=== PATIENT | female | born 1960 | race Caucasian/White ===

== ENCOUNTER → 2019-04-10 14:54 | Outpatient (CLI) | payer OTHER, SELFPAY ==
[2019-04-10 17:29] LABS: Hematocrit 42.2 % (37-47); Hemoglobin 14.1 g/dL (12.0-15.0); Mean Corp Hgb Conc 33.4 g/dL (32-36); Mean Corpuscular Volume 101.7 fL (81-99); Mean Platelet Vol. 10.5 fl (6.2-12.0); Platelet Count 218 K/mm3 (150-450); RBC Distribution Width CV 13.5 % (11.6-14.6); RBC Distribution Width SD 51.3 fl (35.1-43.9); Red Blood Count 4.15 M/mm3 (4.2-5.4)
[2019-04-10 17:43] LABS: ALB/GLOB Ratio 1.2 RATIO (0.9-2.4); AST(SGOT) 22 U/L (15-37); Alanine Aminotransfer ALT/SGPT 26 U/L (13-56); Albumin, Serum 3.8 g/dL (3.2-5.0); Alkaline Phosphatase 69 U/L (45-117); BUN 12 mg/dL (7-18); BUN/Creat Ratio 15.7 RATIO (10-20); Calcium,Total 8.9 mg/dL (8.5-10.1); Chloride 105 mmol/L (98-107); Creatinine, Serum 0.77 mg/dL (0.55-1.02); EST Glomerular Filtration Rate 83 mL/min (>60); Est Glom Filt Rate - Afr Amer 100 mL/min (>60); Globulin 3.2 g/dL (2.2-4.2); Glucose 91 mg/dL (74-106); Potassium 4.1 mmol/L (3.5-5.1); Sodium Level 139 mmol/L (136-145)
[2019-04-10 17:44] LABS: Anion Gap 7 (5-15)
[2019-04-10 17:48] LABS: Erythrocyte Sedimentation Rate 4 mm/hr (0-30)
== END ==
PROVIDERS: Family Provider Family Medicine; PCP Family Medicine; Referring Provider Internal Medicine Gastroenterology; Visit Provider Internal Medicine Gastroenterology
DX: K52.9 Noninfective gastroenteritis and colitis, unspecified (principal)
CPT/HCPCS: 36415; 80053; 85027; 85652

== ENCOUNTER → 2019-06-14 11:13 | Outpatient (CLI) | payer OTHER, SELFPAY ==
--- NOTE | 2019-06-14 | IMM_PTH ---
PATIENT: ITALO MENDIETA LOC: [facility] U#:[id number] AGE/SX: 65/F ROOM: RE06/14/[address]: Dr. Zbigniew Benoit MD : 1960 BED: DIS: SPEC #: [id number] RECD: 06/17/19 12:54 STATUS: CODY REQ #: [id number] DEVANTE: 06/14/19 00:[address]: Zbigniew Benoit DEPT: IMMUNOHISTOCHEMISTRY RECD BY: Meghan Medina ENTERED: 06/17/19 12:54 SP TYPE: IMMUNO OTHR DR: Dr. Pavel Miller DO Tissues: Right breast, NOS Procedures: CK8 (initial) E-CAD (add) PHYSICIAN & INSTITUTION [place] [address] SPECIMEN INFORMATION: Tissue Source: Right breast Clinical Info: Microcalcifications Specimen Number: [id number] #2 CPT code: 78855, 20117 METHODOLOGY: Deparaffinized sections of prefer/formalin-fixed tissue or PAP/DQ stained slides are incubated with monoclonal/polyclonal antibodies/oligonucleotide probes. Localization is made via biotin free immunoperoxidase method. Appropriate controls are performed and reacted as expected. Results on target cell population are indicated in the following table: RESULTS: ANTIBODY / CLONE RESULT Block 2 CK8 ([id number]) positive E-Cad (ECH-6) negative * *?Positive in the area of intraductal hyperplasia. These tests were developed and their performance characteristics determined by [facility]. They may not have been cleared or approved by the U.S. Food and Drug Administration. The FDA has determined that such clearance or approval is not necessary. The above immunohistochemical/dualISH markers are ordered and reviewed by the Pathologist. INTERPRETATION: Right breast, stereotactic needle core biopsy: Focal atypical lobular hyperplasia. Intraductal hyperplasia with atypia. SJ:edy 06/18/19
--- NOTE | 2019-06-14 | BRBX_PTH ---
PATIENT: ITALO MENDIETA LOC: [facility] U#:[id number] AGE/SX: 65/F ROOM: RE06/14/[address]: Dr. Zbigniew Benoit MD : 1960 BED: DIS: SPEC #: [id number] RECD: 06/14/19 13:35 STATUS: CODY REDanny #: [id number] DEVANTE: 06/14/19 00:[address]: Zbigniew Benoit DEPT: SURGICAL PATHOLOGY RECD BY: Renato Taylor ENTERED: 06/14/19 13:35 SP TYPE: BREAST BX OTHR DR: Dr. Pavel Miller DO Tissues: Right breast, NOS Procedures: Surgery Specimen Level IV HEADER OPERATION: Right breast stereotactic needle core biopsy PRE-OP DIAGNOSIS: Microcalcifications TISSUE SUBMITTED: Right breast ISCHEMIC TIME: 2 minutes FIXATION TIME: 55.5 hours MICROSCOPIC DIAGNOSIS Right breast, stereotactic needle core biopsy: Fibrocystic changes and intraductal hyperplasia with atypia. Focal atypical lobular hyperplasia. Frequent microcalcifications. See comment. VICTOR MANUEL:edy 06/17/19 COMMENT The atypia approaches close to low-grade ductal carcinoma in situ. Immunohistochemistry ([id number]) supports the above diagnosis. Please make reference to previous specimen ([id number]) right breast mass, lumpectomy with needle localization with diagnosis of moderate intraductal hyperplasia without atypia. MICROSCOPIC DESCRIPTION Slides are reviewed. GROSS DESCRIPTION Received is one container labeled with the patient's name and not further designated. The specimen consists of multiple elongated fragments of norman-yellow fibroadipose tissue that in aggregate measure 5 x 3 x 0.3 cm. The entire specimen is submitted in two cassettes. / VICTOR AMNUEL:edy 06/14/19 TC:5 CPT: 04613
--- NOTE | 2019-06-14 07:59 | HP.PCM_ITS ---
History and Physical Date of Admission: 06/14/19 HISTORY AND PHYSICAL - BREAST COMPLAINT ? Taylor Delgado 1960 ? ? REFERRING PHYSICIAN: ??Bryce See, DO ? CHIEF COMPLAINT:???Abnormal right breast imaging ? HPI: The patient is a 59 year old female with a complaint of?an abnormal mammogram. ?The patient had a mammogram on April 10, 2019?which demonstrated: ? IMPRESSION: SUSPICIOUS FINDING - BIOPSY SHOULD BE CONSIDERED The grouped pleomorphic calcifications in the right breast are suspicious of malignancy. ?A stereotactic biopsy is recommended. ? IMPRESSION: BENIGN FINDING There is no sonographic evidence of malignancy. The 1.5 cm cyst in the left breast is benign. ? Prior mammographic finding is no longer seen in the left breast. ?There are stable surgical clips in the right breast. There are a grouped pleomorphic calcifications in the right breast at 11 o'clock middle depth. No other significant masses, calcifications, or other findings are seen in either breast. ? ? The patient had a bilateral screening mammogram on 05/02/12 followed by diagnostic right mammogram on May 23, 2012 which demonstrated clusters of microcalcifications in the upper outer portion of the right breast. ?Per radiologist's report, there had been some calcifications on prior films but these appear now to be increasing in number. ?A BIRADS category 4 was given on right breast imaging with recommendation of biopsy. ?The patient denies a history of breast masses. ?She does ?perform a self breast exam routinely. ?She notes no skin changes. ?She denies nipple discharge. ?She notes no axillary masses. ?She notes no family history of breast problems. ?She notes no significant breast trauma or breast difficulties in the past. ? I performed a right side stereotactic biopsy for her abnormal mammogram on June 20. ?The pathology returned as: FINAL DIAGNOSIS 1. Right breast, 12:00, stereotactic core needle biopsy (A) - Focal atypical ductal hyperplasia and flat epithelial atypia in a background of columnar cell change with microcalcifications. 2. Right breast, 3:00, stereotactic core needle biopsy (B) - Unremarkable breast parenchyma. 3. Right breast, 6:00, stereotactic core needle biopsy (C) - Flat epithelial atypia arising in a background of columnar cell change with associated microcalcifications. 4. Right breast, 9:00, stereotactic core needle biopsy (D) - Flat epithelial atypia arising in a background of columnar cell change with associated microcalcifications. ? I recommended needle localization excision. ?I discussed these finding with Dr. Greta Berg who agreed. ? I performed a right needle localization excisional biopsy on November 12. ?? ? Pathology returned as: ? Right breast mass, lumpectomy with needle localization: ?Moderate intraductal hyperplasia without atypia. ?Fibrocystic changes. ?Frequent calcifications. ?Changes consistent with previous biopsy site. ?Negative for malignancy. ? She?does??perform a self breast exam routinely. ?She notes no skin changes. ?She denies nipple discharge. ?She notes no axillary masses. ?She notes no family history of breast problems. ?She notes no significant breast trauma or breast difficulties in the past. ? The patient is being seen by me today at the request of ?for my opinion and advice regarding abnormal right breast imaging.? ? PAST MEDICAL HISTORY PAST MEDICAL HISTORY Diagnosis Date ? Anxiety state, unspecified ? ? Diaphragmatic hernia without mention of obstruction or gangrene ? ? Hiatal hernia ? Irritable bowel syndrome ? ? Irritable bowel ? Leiomyoma of uterus, unspecified ? ? resolved ? PMH - PAST MEDICAL HISTORY OF ? ? piraformis syndrome ? Ulcerative colitis, unspecified ? ? Ulcerative colitis ? Unspecified hypothyroidism ? ? Hypothyroidism ? ? PAST SURGICAL HISTORY PAST SURGICAL HISTORY Procedure Laterality Date ? APPENDECTOMY ? ? ? BX BREAST PERC VACUUM/ROTN ? 06/20/12 ? D&C, DIAG AND/OR THERAPEUTIC ? ? ? Dilation & curettage ? MASTECTOMY, PARTIAL Right 11/12/2012 ? Right upper outer quadrant ? PAST SURGICAL HISTORY OF ? 04/2009 ? aspirated left breast cyst, core bx of right breast ? PAST SURGICAL HISTORY OF ? ?-2008 ? revision of Hysterectomy scar ? REMOVAL OF TONSILS,<12 Y/O ? ? ? Tonsillectomy ? TOTAL ABDOM HYSTERECTOMY ? 06/26/2008 ? Hysterectomy, NEELA-ovaries remain ? ? CURRENT MEDICATIONS Current Outpatient Medications Medication Sig Dispense Refill ? amLODIPine (NORVASC) 5 mg tablet Take 5 mg by mouth. ? ? ? estradiol (SARA) 0.075 mg/24 hr Apply 1 Patch as directed every Monday and Monday. 24 Patch 2 ? loratadine (CLARITIN) 10 mg tablet Take 10 mg by mouth once daily. ? ? ? citalopram (CELEXA) 40 mg tablet ? ? 0 ? DAILY MULTIVITAMIN TAB ? ? 0 ? No current facility-administered medications for this visit.? ? ALLERGIES:?Bee Stings [Other] ? PERSONAL HISTORY:? SOCIAL HISTORY Social History ? Tobacco Use ? Smoking status: Former Smoker ? ? Years: 5.00 ? ? Last attempt to quit: 05/22/1989 ? ? Years since quittin.0 ? Smokeless tobacco: Never Used ? Tobacco comment: 2 cig/day Substance Use Topics ? Alcohol use: Yes ? ? Alcohol/week: 5.0 standard drinks ? ? Types: 2 Glasses of Wine (5oz) per week ? ? Comment: occasionally ? Drug use: No ? FAMILY HISTORY:? FAMILY HISTORY FAMILY HISTORY Problem Relation Age of Onset ? Cancer Mother ?BRAIN ? Heart Father ? ? Cancer Father ?Prostate ? Cancer Maternal Aunt ?LEUKEMIA ? Breast Cancer Maternal Aunt ?Started at late 30's ? Cerebral Embolism Child ? ? REVIEW OF SYMPTOMS: ??The review of systems data was entered by the nurse and reviewed by me ? Nursing Notes: Karon Chairez LPN ?06/06/2019 ?4:33 PM ?Signed REVIEW OF SYSTEMS: ?General:???The patient denies fatigue, denies weight loss, denies weight gain, denies feeling hot, and denies feelings of cold. ?Eyes: ?The patient denies glaucoma, denies eye injury/surgery, wears glasses or contacts. ?Ear/Nose/Throat: ?The patient notesallergies, denies hayfever, denies ear infections, and denies bloody noses. ?Cardiovascular: ?The patient denies chest pain, denies heart disease, denies high blood pressure,denies cardiac stent, denies prior heart attack, denies irregular heart beat, denies high cholesterol, ?denies poor circulation, denies heart failure, other cardiac issues, denies claudication, denies cold feet, denies peripheral arterial stent. ?Respiratory: ?The patient denies tuberculosis, denies pneumonia, denies frequent cough, denies pulmonary embolism, denies shortness of breath, and denies coughing up blood. ?Gastrointestinal: ?The patient denies difficulty swallowing, denies acid reflux, denies ulcers, denies vomiting, denies jaundice/hepatitis, denies gallbladder problems, denies black or tarry stools, denies hemorrhoids, denies bleeding from rectum, denies diverticulitis, denies constipation, denies diarrhea, denies loss of stool control, and denies hernias. ?Kidney/Bladder: ?The patient denies kidney stones, denies urine infections, and denies bloody urine. ?Skin: ?The patient denies a history of skin cancer, denies bleeding/changing moles, and denies a history of skin rash. ?Neurologic: ?The patient denies a history of epilepsy/convulsions, denies headaches, denies head/spinal injuries, and denies stroke/TIA. ?Psychiatric: ?The patient denies psychiatric medications, denies depression, and denies voices, denies substance abuse. ?Endocrine: ?The patient denies thyroid disorders, denies diabetes, and denies hormonal problems. ?Hematologic: ?The patient denies a history of bruising, denies bleeding, and denies anemia, denies blood clots. ?Infections: ?The patient denies a history of measles and mumps, denies rheumatic fever, and denies sexually transmitted diseases. ?Musculoskeletal: ?The patient denies back pain/injury, denies back problems, denies sciatica, denies knee/foot trouble, denies arthritis, or denies gout. ? ? When was patient's last Mammogram screening? 02/2019 ? ?Last Colonoscopy: ?2008 ? Karon Chairez LPN ? PHYSICAL EXAMINATION: ? General: ?The patient is 59 year old female, well nourished, well hydrated in no acute distress. ?The patient is oriented to time, place, and person. ? VITALS:?Blood pressure 130/80, pulse 106, temperature 36.3 ?C (97.4 ?F), temperature source Temporal, height 167.6 cm (5' 6), weight 74.4 kg (164 lb), last menstrual period 06/06/2008, SpO2 99 %.?Body mass index is 26.47 kg/m?.? ? HEENT: ?Normal cephalic, ataumatic, pupils are equally round, sclera are anicteric, mucous membranes are moist, oropharynx is clear. ?Neck has no masses, asymmetry or lymphadenopathy. ?Thyroid is unremarkable. ? Respiratory: ?Clear to auscultation and percussion. ?Normal respiratory excursion and pattern. ? Cardiac: ?Examination is regular rate and rhythm. ? Extremities: ?no clubbing, cyanosis or edema. ?No adenopathy. ? Breast: ?Visual inspection reveals no retractions, nipple inversion, or skin changes. ?She has a well-healed right upper quadrant breast incision consistent with her previous surgical procedure.??Palpation of the right breast reveals no dominant or suspicious masses and?standard postoperative surgical changes relative to her previous excisional biopsy site. ?Palpation of the left breast reveals no dominant or suspicious masses, but multiple benign-feeling nodules. ?Axillary exam demonstrates no suspicious masses in either the left or right axilla. ?There is no nipple discharge expressed from either the left or right breast. ? LABORATORY VALUES: As Noted ? RADIOLOGIC STUDIES: ?As Noted ? Assessment ? IMPRESSION:?Abnormal upper outer quadrant right breast imaging- microcalcifications ? PLAN:??I plan to perform a?stereotactic biopsy of the right breast. ?The planned surgical procedure was discussed extensively with the patient. ?The risks, benefits, anticipated outcomes and possible complications were mentioned. ?My staff has also explained the procedure in understandable terms and the patient was given the option to take printed material concerning the planned procedure. ?The patient had the opportunity to ask questions concerning the planned procedure. ?The patient freely consents to the planned procedure. ? Diagnoses:?(R92.8) Abnormal finding on breast imaging ?(primary encounter diagnosis) ? My findings have been communicated to ?via shared medical record. ?This note will be forwarded to Dr. Bryce See, DO. ? Return to Clinic: The patient is instructed to follow-up with me?after the testing has been completed. ? Zbigniew Benoit MD
--- NOTE | 2019-06-14 17:56 | PCM.OPRPT ---
Report of Operation Date of Procedure: 06/14/19 Pre-Operative Diagnosis: right breast microcalcifications upper outer quadrant Post-Operative Diagnosis: right breast microcalcifications upper outer quadrant Surgery/Procedure Performed:: right breast stereotactic biopsy with vacuum-assisted core needle biopsy specimen radiograph and marker placement repulping supervisor: None Type of Anesthesia:: Local Specimen's removed: right breast Description of Procedure: The patient was brought to the stereotactic suite and informed of the plan course of events. The right breast was positioned in the CC approach on the Gandara stereotactic table. Mammographic image demonstrated the area of abnormality to be located in the center of the radiograph. Stereotactic images were then obtained which demonstrated good positioning of the abnormality for biopsy with good stroke ham parameters. The breast was cleaned with Betadine area did one percent lidocaine was used to anesthetize the skin and a small stab incision made. An 8-gauge mammotome needle was placed into the pre-fire position. Stereotactic images demonstrated good positioning around the planned biopsy site. Local anesthetic injected deeply in the breast. The needle was deployed. Post deployment images demonstrated good positioning of the planned biopsy site. Multiple vacuum-assisted samples were obtained and [id number]-[id number] fashion. Specimen radiograph demonstrated micro-calcifications in the sample. A gel marker clip was deployed. Post biopsy images demonstrated good position of the clip relative the biopsy cavity. The breast was removed from compression. Steri-Strips and a dressing applied. Post procedure mammogram images were obtained.
== END ==
PROVIDERS: PCP Preventive Medicine Occupational Medicine; Referring Provider Surgery; Visit Provider Surgery
DX: N60.11 Diffuse cystic mastopathy of right breast (principal); N60.91 Unspecified benign mammary dysplasia of right breast; R92.0 Mammographic microcalcification found on diagnostic imaging of breast; F41.9 Anxiety disorder, unspecified; Z79.899 Other long term (current) drug therapy; Z87.891 Personal history of nicotine dependence
CPT/HCPCS: 19081; 88305; 88341; 88342; J7050; A4648

== ENCOUNTER 2021-09-01 15:33 | Emergency (ER) | payer OTHER, SELFPAY ==
[2021-09-01 15:34] VITALS: BP 126/101; PULSE 112; RESP 16; TEMP 36.5; O2SAT 100; BMI 28.4
--- NOTE | 2021-09-01 15:50 | EX.ED.DYSGE1 ---
HPI History of Present Illness Chief Complaint: Fever Informant: patient Onset/Context/Timing Onset: Yesterday Narrative Narrative: Patient sent by Dr. Hernandez secondary to fever. Patient was recently diagnosed with breast cancer and to start chemotherapy, last treatment 6 days ago. She was given Neupogen on the eighth. Patient developed low-grade fever last night, T-max 100.7. She has had nausea and vomiting with mild diarrhea. No significant abdominal pain. No urinary symptoms. She has very mild cough with clear sputum that she thinks is secondary to allergies. [facility] Medical History Acute ulcerative colitis Breast cancer HTN (hypertension) Allergy/AdvReac Type Severity Reaction Status Date / Time bee venom protein (honey bee) Allergy Anaphylaxis Verified 09/01/21 15:37 Surgical History H/O: hysterectomy History of appendectomy Social History Smoking Status: Never smoker ROS ROS ED Constitutional Constitutional ED: Reports fever(s) Eyes Eyes: Denies blurry vision or change in vision ENT ENT ED: Denies ear pain Cardiovascular Cardiovascular: Denies chest pain or palpitations Respiratory/Chest Respiratory/Chest: Reports cough and sputum; Denies dyspnea Gastrointestinal Gastrointestinal: Reports diarrhea, nausea, vomiting and other Details: Abdominal cramping prior to emesis. Genitourinary Genitourinary ED: Denies dysuria Integumentary Denies rash Neurologic Neurologic: Denies headache(s) or weakness Allergic/Immunologic Allergic/Immunologic ED: Denies urticaria EXAM Physical Exam Const Vital Signs: 09/01/21 15:34 09/01/21 15:45 09/01/21 16:42 Temperature 97.7 F L Temperature Source Oral Pulse Rate 112 H 78 Respiratory Rate 16 16 Respiratory Effort Normal Respiratory Pattern Normal Blood Pressure 126/101 H 135/78 H Blood Pressure Mean 109 97 Pulse Ox 100 98 Oxygen Delivery Method Room Air Room Air 09/01/21 17:54 Temperature 98.4 F Temperature Source Pulse Rate 78 Respiratory Rate 16 Respiratory Effort Respiratory Pattern Blood Pressure 126/78 H Blood Pressure Mean Pulse Ox 98 Oxygen Delivery Method Positive well nourished and well developed General Appearance ED: well developed HEENT Reports moist mucous membranes Eyes PERRL and EOMs intact bilaterally Neck supple Chest Wall Chest Narrative: Left upper chest port. Resp normal respiratory effort and clear to auscultation bilaterally Cardio regular rate and regular rhythm GI non-tender Auscultation: hypoactive bowel sounds Palpation: soft Extremity normal to inspection Neuro oriented x3 Sensorium / Orientation: alert Skin no rashes or lesions noted MDM MDM MDM Narrative Medical decision making narrative: Patient given Zofran as well as a dose of IV Levaquin. Lab work and blood cultures obtained. Chest x-ray and urinalysis ordered. Lab Data Attestation: I reviewed the patient's lab results. Labs: Laboratory Results - last 24 hr 09/01/21 09/01/21 09/01/21 16:10 16:10 16:10 WBC 1.1 L* RBC 3.69 L Hgb 12.3 Hct 35.7 L MCV 96.7 MCH 33.3 H MCHC 34.5 RDW Std Deviation 45.5 H RDW Coeff of Radha 12.7 Plt Count 114 L MPV 10.4 Immature Gran % (Auto) 0.000 Neut % (Auto) 7.1 L Lymph % (Auto) 70.5 H Mobile % (Auto) 2.7 Eos % (Auto) 17.9 H Baso % (Auto) 1.8 H Absolute Neuts (auto) 0.1 L Absolute Lymphs (auto) 0.79 L Nucleated RBC % 0 Differential Comment SCANNED Diff Path Review May foll Sodium 137 Potassium 3.8 Chloride 104 Carbon Dioxide 29.0 Anion Gap 4 L BUN 14 Creatinine 0.66 Estim Creat Clear Calc 85.92 Est GFR (MDRD) Af Amer 118 Est GFR (MDRD) Non-Af 98 BUN/Creatinine Ratio 21.3 H Glucose 112 H Lactic Acid 0.8 Calcium 9.2 Total Bilirubin 0.70 AST 11 L ALT 24 Alkaline Phosphatase 89 Total Protein 6.8 Albumin 3.6 Globulin 3.2 Albumin/Globulin Ratio 1.1 Urine Color Urine Clarity Urine pH Ur Specific Delta Urine Protein Urine Glucose (UA) Urine Ketones Urine Occult Blood Urine Nitrite Urine Bilirubin Urine Urobilinogen Ur Leukocyte Esterase Urine RBC Urine WBC Ur Squamous Epith Cells Urine Bacteria Urine Mucus 09/01/21 16:10 WBC RBC Hgb Hct MCV MCH MCHC RDW Std Deviation RDW Coeff of Radha Plt Count MPV Immature Gran % (Auto) Neut % (Auto) Lymph % (Auto) Mobile % (Auto) Eos % (Auto) Baso % (Auto) Absolute Neuts (auto) Absolute Lymphs (auto) Nucleated RBC % Differential Comment Diff Path Review Sodium Potassium Chloride Carbon Dioxide Anion Gap BUN Creatinine Estim Creat Clear Calc Est GFR (MDRD) Af Amer Est GFR (MDRD) Non-Af BUN/Creatinine Ratio Glucose Lactic Acid Calcium Total Bilirubin AST ALT Alkaline Phosphatase Total Protein Albumin Globulin Albumin/Globulin Ratio Urine Color Yellow Urine Clarity Clear Urine pH 6.5 Ur Specific Delta 1.010 Urine Protein Negative Urine Glucose (UA) Normal Urine Ketones Negative Urine Occult Blood 10 H Urine Nitrite Negative Urine Bilirubin Negative Urine Urobilinogen Normal Ur Leukocyte Esterase Negative Urine RBC 0 SEEN Urine WBC 0 SEEN Ur Squamous Epith Cells 0-5 SEEN Urine Bacteria 1+ Urine Mucus 0 SEEN Radiography Chest X-Ray - ED: 2 View, Read by ED Physician and No Acute Disease Diagnostic Testing: Clinical Impression(s) from Imaging Studies Chest X-Ray 09/01/21 16:24 IMPRESSION: Left Port-A-Cath. There is no acute cardiopulmonary disease. Electronically Signed: Christian Hauser DO at 16:43 EDT Reading Location ID and State: [address] [place] [address] Tel [phone], Service support , Treatment and Re-Evaluation Narrative: On repeat evaluation patient looks well and is tolerating p.o. without difficulty. I did review the notes sent over from Dr. Mac's office. We were to get chest x-ray, blood cultures, blood work. They already called in a prescription for Levaquin and Zofran for the patient. They will be calling her tomorrow for follow-up. Patient was advised that if her blood cultures are positive she will be called to come back in for IV antibiotics. Return instructions are provided. Discharge Plan Triage Chief Complaint: Fever ED Provider: Tanna Saldana Dx/Rx/DC Orders Clinical Impression: Neutropenic fever Instructions: Neutropenia, ED FUO Adult Primary Care Provider: Pavel Miller Referrals: Aditya Hernandez DO [STAFF PHYSICIAN] - 2 Days Pavel Miller DO [Primary Care Provider] - Disposition Disposition: Home, Self Care Discharge Date/Time: 09/01/21 17:55
[2021-09-01 16:24] LABS: Mucous, Urine 0 SEEN /hpf (<or=2+); Red Blood Cells-Urine 0 SEEN /hpf (0-5); White Blood Cells 0 SEEN /hpf (0-5)
--- NOTE | 2021-09-01 16:24 | RAD_ITS ---
STUDY: X-RAY CHEST REASON FOR EXAM: Female, 61 years old. Fever. TECHNIQUE: PA and lateral views of the chest. COMPARISON: None. FINDINGS: Left jugular Port-A-Cath with its tip at the atriocaval junction. The lungs are clear and expanded. There is no demonstrated pleural abnormality. Normal size heart. Normal mediastinum and fozia. Normal visualized pulmonary arteries. There is mild atherosclerotic calcification of the aortic arch with tortuosity. Normal visualized thoracic spine. Normal visualized ribs, clavicles, and shoulders. There is no demonstrated abnormality of the visualized soft tissue structures of the upper abdomen. RAD/Chest PA and Lateral IMPRESSION: Left Port-A-Cath. There is no acute cardiopulmonary disease. Electronically Signed: Christian Hauser DO at 16:43 EDT ,
[2021-09-01 16:37] LABS: Color, Urine Yellow (Yellow); Glucose, Dipstick Normal (Normal); Ketone-Dipstick Negative (Negative); Leukocyte Esterase-Dipstick Negative /ul (Negative); Nitrite-Dipstick Negative (Negative); Occult Blood-Urine 10 /ul (Negative); Protein-Dipstick Negative (Negative); Urine Bilirubin Dipstick Negative (Negative); Urine Clarity Clear (Clear); Urine Urobilinogen Normal (Normal); Urine pH 6.5 (5.0 - 8.0)
[2021-09-01 16:41] LABS: Absolute Lymphocyte Count 0.79 X10^3/uL (0.83-4.51); Absolute Neutrophil Count 0.1 X10^3/uL (2.0-7.7); Basophil# 0.02 X10^3/uL; Basophil% 1.8 % (0-1); Eosinophils% 17.9 % (0-5); Hematocrit 35.7 % (37-47); Hemoglobin 12.3 g/dL (12.0-15.0); Lymphocyte # 0.79 X10^3/ul (0.83-4.51); Lymphocyte % 70.5 % (19-41); Mean Corp Hgb Conc 34.5 g/dL (32-36); Mean Corpuscular Hgb 33.3 pg (27.0-32.0); Mean Corpuscular Volume 96.7 fL (81-99); Mean Platelet Vol. 10.4 fl (6.2-12.0); Monocyte# 0.03 X10^3/uL; Monocyte% 2.7 % (0-10); NRBC Flagged by Analyzer 0 % (0-5); Neutrophil # 0.08 X10^3/uL (2.7-7.7); Neutrophil % 7.1 % (47-70); POSITIVE COUNT YES; POSITIVE DIFFERENTIAL YES; POSITIVE MORPHOLOGY YES; Platelet Count 114 K/mm3 (150-450); RBC Distribution Width CV 12.7 % (11.6-14.6); RBC Distribution Width SD 45.5 fl (35.1-43.9); Red Blood Count 3.69 M/mm3 (4.2-5.4)
[2021-09-01 16:42] VITALS: BP 135/78; PULSE 78; RESP 16; O2SAT 98
[2021-09-01 16:43] LABS: Bacteria 1+ /hpf (None Seen); Squamous Epithelial Cells - UA 0-5 SEEN /hpf (5-10)
[2021-09-01] MEDS: levoFLOXacin IV 500 MG/100 ML BAG 100 MG IV (16:43)
[2021-09-01 16:44] LABS: ALB/GLOB Ratio 1.1 RATIO (0.9-2.4); AST(SGOT) 11 U/L (15-37); Alanine Aminotransfer ALT/SGPT 24 U/L (13-56); Albumin, Serum 3.6 g/dL (3.2-5.0); Alkaline Phosphatase 89 U/L (45-117); Anion Gap 4 (5-15); BUN 14 mg/dL (7-18); BUN/Creat Ratio 21.3 RATIO (10-20); Calcium,Total 9.2 mg/dL (8.5-10.1); Chloride 104 mmol/L (98-107); Creatinine, Serum 0.66 mg/dL (0.55-1.02); EST Glomerular Filtration Rate 98 mL/min (>60); Est Glom Filt Rate - Afr Amer 118 mL/min (>60); Estimated Creatinine Clearance 85.92 ml/min; Globulin 3.2 g/dL (2.2-4.2); Glucose 112 mg/dL (74-106); Potassium 3.8 mmol/L (3.5-5.1); Protein, Total 6.8 g/dL (6.4-8.2); Sodium Level 137 mmol/L (136-145)
[2021-09-01] MEDS: Ondansetron 4 MG/2 ML Vial IV (16:44)
[2021-09-01 16:58] LABS: Lactic Acid 0.8 mmol/L (0.4-1.9)
[2021-09-01 17:00] LABS: Differential Indicated SCAN CRITERIA MET; White Blood Count 1.1 K/mm3 (4.4-11.0)
[2021-09-01 17:30] LABS: Differential Comment SCANNED
[2021-09-01 17:54] VITALS: BP 126/78; PULSE 78; RESP 16; TEMP 36.9; O2SAT 98
[2021-09-02 11:59] LABS: Pathologist Review Reviewed
== END 2021-09-01 17:55 | disposition home or self-care (01) ==
PROVIDERS: Emergency Provider Emergency Medicine; PCP Preventive Medicine Occupational Medicine; Visit Provider Emergency Medicine
DX: D70.9 Neutropenia, unspecified (principal); K51.90 Ulcerative colitis, unspecified, without complications; C50.919 Malignant neoplasm of unspecified site of unspecified female breast; R11.2 Nausea with vomiting, unspecified; R19.7 Diarrhea, unspecified; I10 Essential (primary) hypertension; R50.81 Fever presenting with conditions classified elsewhere; Z79.899 Other long term (current) drug therapy
CPT/HCPCS: 36591; 71046; 80053; 81001; 83605; 85025; 87040; 96365; 96375; 99284; A4216; J2405

== ENCOUNTER 2022-01-19 10:47 | Emergency (ER) | payer OTHER, SELFPAY ==
[2022-01-19 10:48] VITALS: BP 160/99; PULSE 97; RESP 16; TEMP 36.7; O2SAT 99; BMI 29.0
--- NOTE | 2022-01-19 10:57 | VDUE_ITS ---
Reason For Study: Swelling Right Proximal Right jugular vein is spontaneous, widely patent, phasic, with no intraluminal echogenicity noted. Right subclavian vein is spontaneous, widely patent, phasic, with no intraluminal echogenicity noted. Right Lower Arm Right radial vein is compressible. Right ulnar vein is compressible. Right Arm Right axillary vein is spontaneous, patent, phasic, competent, compressible and demonstrates augmentation. Right brachial vein is compressible. Right cephalic vein is compressible. Right basilic vein is compressible. Patient Safety Preliminary report sent to ED. VL/Venous Duplex US, Unilateral Interpretation Summary Deep veins of the right upper extremity are patent and compressible segmentally . There is no evidence of deep vein thrombosis. Ordering Physician: Rudy Gregg Referring Physician: Pavel Miller Performed By: Sheyla Roberts RVT ???
--- NOTE | 2022-01-19 10:58 | EDS_ITS ---
HPI History of Present Illness HPI Narrative: Patient presents with swelling to her right upper extremity that began yesterday morning. Patient states she woke up with the swelling. Patient states it has been persistent. Patient describes her pain as throbbing. Patient states nothing makes it worse and nothing makes it better. Patient states she has been keeping her arm elevated with no improvement. Patient has been wearing compression sleeve and glove with no improvement. Patient denies any paresthes ias or weakness. Patient has a history of breast cancer and had a right mastectomy and 15 lymph nodes removed from her right axilla. Patient states she called her oncologist who referred her to the emergency department for possible DVT of her right upper extremity. Chief Complaint: Upper Extremity Injury Informant: patient Occured/Mechanism Comment: Swelling Onset/Context/Timing Context: Sudden Onset Timing: Continuous Quality of Pain: Throbbing Location: Right upper extremity Worsened by: Nothing Relieved by: Nothing PFSH PFSH Medical History (Updated 01/19/22 @ 12:[address] Rudy Gregg DO) Acute ulcerative colitis Breast cancer HTN (hypertension) Allergy/AdvReac Type Severity Reaction Status Date / Time bee venom protein (honey bee) Allergy Anaphylaxis Verified 01/19/22 11:01 Surgical History H/O: hysterectomy History of appendectomy Hx of right mastectomy Social History Smoking Status: Never smoker ROS ROS ED Constitutional Constitutional ED: Denies chills or fever(s) Eyes Eyes: Denies blurry vision or change in vision ENT ENT ED: Denies rhinorrhea or sore throat Cardiovascular Cardiovascular: Denies chest pain or palpitations Respiratory/Chest Respiratory/Chest: Denies cough or dyspnea Gastrointestinal Gastrointestinal: Denies nausea or vomiting Genitourinary Genitourinary ED: Denies dysuria or hematuria Musculoskeletal Musculoskeletal: Denies back pain or neck pain Integumentary Reports rash; Denies abscess Neurologic Neurologic: Denies headache(s) or weakness Allergic/Immunologic Allergic/Immunologic ED: Denies mouth swelling or urticaria EXAM Physical Exam Const Vital Signs: 01/19/22 10:48 Temperature 98.1 F Temperature Source Temporal Pulse Rate 97 Respiratory Rate 16 Blood Pressure 160/99 H Blood Pressure Mean 119 Pulse Ox 99 Oxygen Delivery Method Room Air Positive well nourished and well developed General Appearance ED: well developed HEENT Reports moist mucous membranes Neck supple and no JVD Resp normal respiratory effort and clear to auscultation bilaterally Cardio regular rate, regular rhythm and no murmurs GI normal to inspection, nondistended, normoactive bowel sounds and non-tender Palpation: soft Extremity Extremity Narrative: There is edema over the right upper extremity. There is no deformity. There is limited range of motion of the fingers of the right hand due to the swelling. Radial pulses are equal bilaterally. Sensation was intact to light touch in the radial, median, and ulnar areas. Strength is 5/5 in the radial, median, and ulnar areas. General Extremety ED: Yes edema General Extremity: edema Neuro oriented x3, CN's II-XII intact bilaterally and no sensory deficits noted Sensorium / Orientation: alert Motor Exam: strength 5/5 throughout Psych mental status grossly normal MDM MDM MDM Narrative Medical decision making narrative: Venous duplex of the right upper extremity was obtained. There is no evidence of DVT. Case was discussed with Dr. Hernandez. He recommended applying an [place] wrap to the right upper extremity. He will attempt to expedite her physical therapy appointment. Patient was instructed to keep the right arm elevated. Patient was instructed to follow-up in 5 to 7 days. Patient understood and was agreeable with the plan. All questions were answered. Discharge Plan Triage Chief Complaint: Upper Extremity Injury ED Provider: Rudy Gregg Dx/Rx/DC Orders Clinical Impression: Edema of right upper extremity, History of breast cancer Instructions: ED Lymphedema Primary Care Provider: Pavel Miller Referrals: Aditya Hernandez DO [Med Staff - Active Staff] - 5-7 Days Pavel Miller DO [Primary Care Provider] - 5-7 Days Disposition Disposition: Home, Self Care
[2022-01-19 13:15] VITALS: BP 135/92; RESP 16; O2SAT 98
== END 2022-01-19 13:16 | disposition home or self-care (01) ==
PROVIDERS: Emergency Provider Emergency Medicine; PCP Preventive Medicine Occupational Medicine; Visit Provider Emergency Medicine
DX: R60.1 Generalized edema (principal); I10 Essential (primary) hypertension; Z85.3 Personal history of malignant neoplasm of breast
CPT/HCPCS: 93971; 99282

== ENCOUNTER 2022-02-10 13:53 | Outpatient (RCR) | payer OTHER, SELFPAY ==
--- NOTE | 2022-02-16 09:10 | HP.OTEVAL_ITS ---
Patient's Visit Information ITALO MENDIETA is a 61 year old F, referred to Occupational Therapy by Dr. Aditya Hernandez DO, with a diagnosis of Lymphedema. Date of Evaluation: 02/10/22 Occupational Therapist: MERCED Cyr/Sonam, CHT - Subjective This 61 year old female was seen for OT eval with dx of right UE lymphedema. pt states she noticed right UE swelling in hand about two weeks ago- pt underwent sx July 28 with15 lymph nodes removed with 9 positive. pt started radiation and feels she is doing ok so far with it. Pt states she has a compression sleeve and glove but does not like to use it- states she slept with her arm sleeve on one night and her hand was very swollen the next morning. Pt states she just would like to know what to do to assist in mtg of her lymphedema. - ROM ROM Comments: pt demo with full UE ROM - Lymphedema (Circumferential Measure) MCP: right 20.5cm left 18.5cm Wrist: right 18cm left 15cm Lower forearm: right 22cm left 17cm Largest forearm: right 27cm left 22cm Elbow: right 27cm left 23cm Largest humerus: right 28cm left 28cm Axcillary: right 32cm left 33cm Upper Exremity Comments: slight swelling in right UE phase I lymphedema - Quick DASH-Disab of Arm,Shoulder& Hand Quick DASH Score: 59.0900 - Goals Demonstrate a 20% reduction in edema by d/c: Yes Demonstrate adequate knowledge of self-massage by 2nd week: Yes Demonstrate adequate knowledge skin care/prec by 2nd week: Yes Demonstrate adequate knowledge therapeutic exercises by d/c: Yes Select approp compression garment w/donning/care/wear by d/c: Yes Voice need to replace compression garment every 4-6mo by dc: Yes - Rehabilitation General Assessment: pt demo with phase I lymphedema and demo need of OT services 2-3 visits to ed. pt on dx, treatment options and exercise that would be beneficial to her. Today therapist ed. pt on use of compression glove and sleeve and that she should use it during the day -not typically at night- pt demo understanding and realized sleeping in sleeve cause hand to swell. Therapist ed. pt on lymph stimulations exercise, as well as self manual lymph massage and scar massage along with beneficial exercise. pt demo understanding was given handouts and expressed understanding of how to use compression sleeve with glove. - Anticipated Interventions Education re assistive Equipment, Education re Diagnosis, Manual Lymph Drainage, Education re Life-long lymphedema Management, Education re Skin Care and Precautions, Education re Self Massage Techniques, Education re Correct Donning Tech,Care&Wearing Sched Comp Garments, Caregiver Training, Home Program - Visit Plan TEXT: Thank you for the opportunity to evaluate your patient. For Medicare and Medicare HMO plans, please review the plan of care and approve it. It will need to be FAXED BACK to us at [phone] for Medicare purposes. Please let me know if there are questions or concerns regarding this plan of care. Physician Signature:_ Date:
--- NOTE | 2022-04-25 12:58 | HP.OT.NRP ---
ITALO MENDITEA was seen in my office for initial evaluation on 02/10/22. The following Plan of Care was established for this patient: Anticipated Interventions: Education re assistive Equipment, Education re Diagnosis, Manual Lymph Drainage, Education re Life-long lymphedema Management, Education re Skin Care and Precautions, Education re Self Massage Techniques, Education re Correct Donning Tech,Care&Wearing Sched Comp Garments, Caregiver Training, Home Program This patient was last seen in our office 02/10/22. Pertinent comments regarding their Occupational therapy will appear below: no further apts have been scheduled and due to time lapse in services pt d/c. At this point I will be discontinuing this patient from occupational therapy. I would be happy to see this patient again in the future if found appropriate by the physician. Thank you! Harriett Martinez, OTR/L, CHT
== END 2022-02-10 19:00 | disposition home or self-care (01) ==
LOC: OT 13:53
PROVIDERS: PCP Preventive Medicine Occupational Medicine; Referring Provider Internal Medicine Hematology & Oncology; Visit Provider Internal Medicine Hematology & Oncology
DX: I89.0 Lymphedema, not elsewhere classified (principal); C50.811 Malignant neoplasm of overlapping sites of right female breast
CPT/HCPCS: 97166; 97530

== ENCOUNTER 2022-02-10 16:06 | Emergency (ER) | payer OTHER, SELFPAY ==
[2022-02-10] VITALS (8 sets, daily range): BP systolic 124–140; BP diastolic 84–99; PULSE 87–103; RESP 11–21; TEMP 36.7; O2SAT 94–99; BMI 29.0
--- NOTE | 2022-02-10 16:18 | EKG12_ITS ---
Test Reason : CHEST PAIN Blood Pressure : / mmHG Vent. Rate : 099 BPM Atrial Rate : 099 BPM P-R Int : 176 ms QRS Dur : 076 ms QT Int : 366 ms P-R-T Axes : 069 026 071 degrees QTc Int : 469 ms Normal sinus rhythm Possible Left atrial enlargement Borderline ECG Confirmed by CHARITY SHRESTHA, REX ([id number]), newspaper managing editor FLAVIO ALVAREZ ([id number]) on 02/14/2022 9:45:52 AM Referred By: RACHEL Confirmed By:REX NASH MD
--- NOTE | 2022-02-10 16:18 | EDS_ITS ---
HPI History of Present Illness Chief Complaint: Chest Pain Narrative Narrative: 61-year-old female with history of grade 1 invasive lobular Carcinoma of the Right Breast Previously on Taxol and Followed by Dr. Hernandez Presenting with Chest tightness, shortness of breath, cough x4 days. Patient states she did start radiation therapy Monday. She is anticoagulated on Eliquis for history of DVT in the left leg. She states she has been taking this since October. She is on 5 mg twice a day dosing. She started with 10 mg p.o. twice daily. She does state that she feels like she is wheezing sometimes when she coughs and clears. No history of asthma or COPD. She states that sometimes when she wakes up at night she has the same sensation of feeling like short of breath when she coughs it goes away when she lays back down. She does have albuterol at home which helps. She states she is not using it excessively. She is not had fever, chills. No body aches. [facility] Medical History Acute ulcerative colitis Breast cancer HTN (hypertension) Home Medications albuterol sulfate 90 mcg/actuation aerosol inhaler 2 puff inhalation Q4H PRN Wheezing 02/10/22 [History Last Taken Unknown] amlodipine 5 mg tablet 5 mg PO DAILY 02/10/22 [History Last Taken Unknown] apixaban 5 mg tablet 5 mg PO BID 02/10/22 [History Last Taken Unknown] epinephrine 0.3 mg/0.3 mL injection, auto-injector 0.3 mg IM PRN PRN Allergy Symptoms 02/10/22 [History Last Taken Unknown] levothyroxine 75 mcg tablet 75 mcg PO DAILY 02/10/22 [History Last Taken Unknown] lidocaine-prilocaine 2.5 %-2.5 % topical cream See Rx Instructions .Route .COMPLEX 02/10/22 [History Last Taken Unknown] loratadine 10 mg tablet 10 mg PO DAILY 02/10/22 [History Last Taken Unknown] lorazepam 0.5 mg tablet 0.5 mg PO DAILY 02/10/22 [History Last Taken Unknown] olanzapine 10 mg tablet 10 mg PO QHS 02/10/22 [History Last Taken Unknown] prednisone 50 mg tablet 50 mg PO DAILY #5 tabs 02/10/22 [Rx Last Taken Unknown] promethazine 25 mg tablet 25 mg PO Q6H PRN Nausea 02/10/22 [History Last Taken Unknown] triamcinolone acetonide 0.1 % lotion See Rx Instructions .Route .COMPLEX 02/10/22 [History Last Taken Unknown] Allergy/AdvReac Type Severity Reaction Status Date / Time bee venom protein (honey bee) Allergy Anaphylaxis Verified 02/10/22 16:18 Surgical History H/O: hysterectomy History of appendectomy Hx of right mastectomy Social History Smoking Status: Never smoker ROS ROS ED Constitutional Constitutional ED: Denies chills or fever(s) Eyes Eyes: Denies change in vision or diplopia ENT ENT ED: Denies rhinorrhea or sore throat Cardiovascular Cardiovascular: Reports other Details: Chest tightness Respiratory/Chest Respiratory/Chest: Reports cough and dyspnea Gastrointestinal Gastrointestinal: Denies abdominal pain or constipation Genitourinary Genitourinary ED: Denies dysuria or hematuria Musculoskeletal Musculoskeletal: Denies arthralgias, back pain or myalgias Integumentary Denies abscess or Abrasions Neurologic Neurologic: Denies headache(s) or paresthesias Psychiatric Psychiatric: Denies anxiety or depression EXAM Physical Exam Const Vital Signs: 02/10/22 16:07 02/10/22 16:14 02/10/22 16:16 Temperature 98.1 F Temperature Source Temporal Pulse Rate 100 103 H Respiratory Rate 16 21 H Respiratory Effort Normal Non-Labored Respiratory Depth Normal Respiratory Pattern Normal Blood Pressure 125/84 H 140/99 H Blood Pressure Mean 97 112 Pulse Ox 99 95 Oxygen Delivery Method Room Air Room Air Room Air 02/10/22 16:22 02/10/22 17:26 02/10/22 17:32 Temperature Temperature Source Pulse Rate 87 101 H Respiratory Rate 14 11 L Respiratory Effort Respiratory Depth Respiratory Pattern Normal Blood Pressure 124/94 H Blood Pressure Mean 104 Pulse Ox 98 98 Oxygen Delivery Method Room Air Room Air 02/10/22 19:07 02/10/22 20:07 Temperature Temperature Source Pulse Rate 96 96 Respiratory Rate 16 18 Respiratory Effort Respiratory Depth Respiratory Pattern Blood Pressure 132/87 H Blood Pressure Mean Pulse Ox 97 97 Oxygen Delivery Method Room Air Positive well nourished General Appearance ED: NAD HEENT Reports moist mucous membranes Eyes PERRL and EOMs intact bilaterally General Eye ED: Negative for pale conjunctiva or scleral icterus Chest Wall inspection of chest normal and palpation of chest normal Resp Resp Narrative: Patient with expiratory wheezes on examination but this clears after she coughs. This is predominantly in the right upper and right middle lobe GI normal to inspection, nondistended, normoactive bowel sounds Neuro oriented x3 and CN's II-XII intact bilaterally Sensorium / Orientation: awake and alert Psych mental status grossly normal Skin no rashes or lesions noted Heart Score History: Slightly/Non-Suspicious ECG: Normal Age: </= 45 years Risk Factors: 1 or 2 Risk Factors Troponin: </= Normal Limit Score: 1 MDM MDM MDM Narrative Medical decision making narrative: Patient presenting with chest tightness and is wheezing on examination but when she coughs this clears. She states is been a persistent issue since radiation therapy on Monday. CBC is obtained and her white blood cell count is 6.6. Hemoglobin 12.4. Platelets 228. Renal function and electrolytes are normal. High-sensitivity troponin is 28. After speaking with the patient she told me that she was on Eliquis for history of DVT and was taking the full doses of 5 mg twice daily after taking the first week of 10 mg p.o. twice daily starting in October. Initially had ordered a D-dimer which was canceled but did result incidentally but is still negative when age-adjusted. I do not believe the patient needs a CTA. Her EKG shows a sinus rhythm with a ventricular rate of 99 bpm without sign of ischemic change. Patient was given a DuoNeb which did help her breathing. Chest x-ray on my interpretation shows no acute cardiopulmonary process. Radiology in agreement. Delta troponin came back at 25. There is no significant interval change. Patient feeling well after her breathing treatment. Patient was discussed with Dr. Hernandez and we will place her on prednisone for home. She has an albuterol inhaler. Patient will follow-up with him or her primary care. Patient stable for discharge. Impression: 1. Chest pain 2. Bronchitis Lab Data Labs: Laboratory Results - last 24 hr 02/10/22 02/10/22 02/10/22 16:37 16:37 16:37 WBC 6.6 RBC 3.36 L Hgb 12.4 Hct 37.6 MCV 111.9 H MCH 36.9 H MCHC 33.0 RDW Std Deviation 54.4 H RDW Coeff of Radha 13.2 Plt Count 228 MPV 10.2 Immature Gran % (Auto) 0.500 Neut % (Auto) 61.4 Lymph % (Auto) 18.3 L [place] % (Auto) 11.9 H Eos % (Auto) 7.4 H Baso % (Auto) 0.5 Absolute Neuts (auto) 4.1 Absolute Lymphs (auto) 1.21 Nucleated RBC % 0 D-Dimer Quant (PE/DVT) 0.51 H* Sodium 140 Potassium 3.6 Chloride 106 Carbon Dioxide 26.0 Anion Gap 8 BUN 12 Creatinine 0.72 Estim Creat Clear Calc 78.76 Est GFR (MDRD) Af Amer 106 Est GFR (MDRD) Non-Af 88 BUN/Creatinine Ratio 16.6 Glucose 115 H Calcium 9.4 Troponin I High Sens 28 02/10/22 19:03 WBC RBC Hgb Hct MCV MCH MCHC RDW Std Deviation RDW Coeff of Radha Plt Count MPV Immature Gran % (Auto) Neut % (Auto) Lymph % (Auto) [place] % (Auto) Eos % (Auto) Baso % (Auto) Absolute Neuts (auto) Absolute Lymphs (auto) Nucleated RBC % D-Dimer Quant (PE/DVT) Sodium Potassium Chloride Carbon Dioxide Anion Gap BUN Creatinine Estim Creat Clear Calc Est GFR (MDRD) Af Amer Est GFR (MDRD) Non-Af BUN/Creatinine Ratio Glucose Calcium Troponin I High Sens 25 Radiography Diagnostic Testing: Clinical Impression(s) from Imaging Studies Chest X-Ray 02/10/22 17:10 IMPRESSION: No acute cardiopulmonary pathology. Electronically Signed: Michael Montalvo MD at 17:28 EDT , Discharge Plan Triage Chief Complaint: Chest Pain Other Complaint: Shortness of Breath ED Provider: Michael Martines Dx/Rx/DC Orders Instructions: ED Bronchitis with Wheezing (Adult) Prescriptions: New prednisone 50 mg tablet 50 mg PO DAILY Qty: 5 0RF No Action olanzapine 10 mg Tablet 10 mg PO QHS amlodipine 5 mg tablet 5 mg PO DAILY Label Comments: TAKE ONE TABLET ONCE DAILY, MAY NEED TO ADJUST lidocaine-prilocaine 2.5-2.5 % Cream See Rx Instructions .ROUTE .COMPLEX Rx Instructions: PRIOR TO PORT ACCESS PER PT. levothyroxine 75 mcg tablet 75 mcg PO DAILY Label Comments: PLEASE SEE ATTACHED FOR DETAILED DIRECTIONS lorazepam 0.5 mg tablet 0.5 mg PO DAILY Label Comments: TAKE 1 TABLET BY MOUTH ONCE DAILY NEEDED FOR UP TO 30 DAYS. promethazine 25 mg tablet 25 mg PO Q6H PRN (Reason: Nausea) Label Comments: TAKE 1 TABLET BY MOUTH EVERY 6 HOURS NEEDED. FOR NAUSEA epinephrine 0.3 mg/0.3 mL auto-injector 0.3 mg IM PRN PRN (Reason: Allergy Symptoms) Label Comments: INJECTONCE INTRAMUSCULARLY DIRECTED O NEEDED FOR ALLERGIC REACTION. triamcinolone acetonide 0.1 % lotion See Rx Instructions .ROUTE .COMPLEX Label Comments: APPLY TO AFFECTED AREA 3 TIMES A DAY Rx Instructions: APPLY TO IRRITATED AREAS OR CHEMO RASH PER PT. albuterol sulfate 90 mcg/actuation HFA aerosol inhaler 2 puff INHALATION Q4H PRN (Reason: Wheezing) Label Comments: INHALE 2 PUFF(S) EVERY 4 HOURS NEEDED FOR WHEEZING loratadine 10 mg Tablet 10 mg PO DAILY apixaban 5 mg Tablet 5 mg PO BID Primary Care Provider: Pavel Miller Referrals: Aditya Hernandez DO [Med Staff - Active Staff] - 3-5 Days Pavel Miller DO [Primary Care Provider] - Disposition Disposition: Home, Self Care Discharge Date/Time: 02/10/22 20:11
[2022-02-10] MEDS: Aspirin 81 MG TAB.CHEW 324 MG PO (16:24)
[2022-02-10 16:48] LABS: Absolute Lymphocyte Count 1.21 X10^3/uL (0.83-4.51); Absolute Neutrophil Count 4.1 X10^3/uL (2.0-7.7); Basophil# 0.03 X10^3/uL; Basophil% 0.5 % (0-1); Eosinophil# 0.49 X10^3/uL; Eosinophils% 7.4 % (0-5); Hematocrit 37.6 % (37-47); Hemoglobin 12.4 g/dL (12.0-15.0); Lymphocyte # 1.21 X10^3/ul (0.83-4.51); Lymphocyte % 18.3 % (19-41); Mean Corpuscular Hgb 36.9 pg (27.0-32.0); Mean Corpuscular Volume 111.9 fL (81-99); Mean Platelet Vol. 10.2 fl (6.2-12.0); Monocyte# 0.79 X10^3/uL; Monocyte% 11.9 % (0-10); NRBC Flagged by Analyzer 0 % (0-5); Neutrophil # 4.08 X10^3/uL (2.7-7.7); Neutrophil % 61.4 % (47-70); Platelet Count 228 K/mm3 (150-450); RBC Distribution Width CV 13.2 % (11.6-14.6); RBC Distribution Width SD 54.4 fl (35.1-43.9); Red Blood Count 3.36 M/mm3 (4.2-5.4); White Blood Count 6.6 K/mm3 (4.4-11.0)
[2022-02-10 17:10] LABS: D-Dimer Quantitative (DVT/PE) 0.51 FEU/ug/m (0.27-0.49)
--- NOTE | 2022-02-10 17:10 | RAD_ITS ---
STUDY: X-RAY CHEST REASON FOR EXAM: Female, 61 years old. chest pain TECHNIQUE: AP portable COMPARISON: 09/01/2021 FINDINGS: The lungs are clear and expanded. There is no demonstrated pleural abnormality. Normal size heart. Normal mediastinum and fozia. Normal visualized pulmonary arteries. Normal visualized aortic arch and descending thoracic aorta. Normal visualized thoracic spine. Normal visualized ribs, clavicles, and shoulders. Mediport catheter noted on the right with tip in the right atrium There is no demonstrated abnormality of the visualized soft tissue structures of the upper abdomen. No significant change since prior exam RAD/Chest 1 View (Portable) IMPRESSION: No acute cardiopulmonary pathology. Electronically Signed: Michael Montalvo MD at 17:28 EDT ,
[2022-02-10] MEDS: Ipratropium/Albuterol Sulfate 3 ML AMPUL.NEB INHALATION (17:24)
[2022-02-10 17:50] LABS: Anion Gap 8 (5-15); BUN 12 mg/dL (7-18); BUN/Creat Ratio 16.6 RATIO (10-20); Calcium,Total 9.4 mg/dL (8.5-10.1); Chloride 106 mmol/L (98-107); Creatinine, Serum 0.72 mg/dL (0.55-1.02); EST Glomerular Filtration Rate 88 mL/min (>60); Est Glom Filt Rate - Afr Amer 106 mL/min (>60); Estimated Creatinine Clearance 78.76 ml/min; Glucose 115 mg/dL (74-106); Potassium 3.6 mmol/L (3.5-5.1); Sodium Level 140 mmol/L (136-145); Troponin-I HS (w/2H Reflex) 28 pg/mL (3.0-54.0)
[2022-02-10 18:44] LABS: Reflex Troponin-HS? (from REC) Y
--- NOTE | 2022-02-10 18:48 | HP.PCM.HOS_ITS ---
HPI - General General Date of Admission: 02/10/22 Date of Service: 02/10/22 Chief Complaint: Chest tightness, wheezing, cough x 5 days. HPI Narrative The patient is a 61 y/o F w/ PMHx: R breast Invasive grade 1 lobular carcinoma following w/ Dr. Hernandez s/p prior Taxol treatment with recent radiation start the recent Monday prior, Hx VTE with LLE DVT on eliquis (started 10/2021), HTN, Hypothyroidism, Anxiety and Depression who presents to the [facility] ED on 02/10/22 with history of onset over the last 4 to 5 days dyspnea, nonproductive cough as well as wheezing with no prior history of asthma or COPD with albuterol use at home noting to have some improvement with no recent fevers or chills however given not improving and chest tightness prompted ED evaluation. Work-up in the ED included T98.1, heart rates up to 103, BP initially 125/84, respiratory rate 21, 95 to 98% on room air, CBC with WC 6.6, he 112.4, platelet 228 without marked shift, D-dimer 0.51 which is normal for age adjustment, BMP with glucose 115 otherwise not marked appearing, troponin 28, chest x-ray with no acute cardiopulmonary findings, rapid COVID antigen negative, EKG with sinus rhythm with no acute evidence of ischemia. In the ED patient ministered aspirin 324 mg p.o. x1 as well as DuoNeb therapy. Right breast invasive grade 1 lobular carcinoma: Following with Dr. Hernandez, status post prior Taxol treatments, recent initiation of radiation therapy. Hypertension: Continue home regimen including amlodipine with hold parameters as needed, PRN hydralazine. Hypothyroidism: We will continue patient on levothyroxine regimen. Anxiety and depression: We will continue patient home Ativan and olanzapine regimen. Allergic rhinitis: We will continue patient home loratadine regimen. History of VTE: Patient with history of left lower extremity DVT, continue home Eliquis regimen. DVT prophylaxis: SCDs, Eliquis. [facility] Medical History Acute ulcerative colitis Breast cancer HTN (hypertension) Home Medications albuterol sulfate 90 mcg/actuation aerosol inhaler 2 puff inhalation Q4H PRN Wheezing 02/10/22 [History Last Taken Unknown] amlodipine 5 mg tablet 5 mg PO DAILY 02/10/22 [History Last Taken Unknown] apixaban 5 mg tablet 5 mg PO BID 02/10/22 [History Last Taken Unknown] epinephrine 0.3 mg/0.3 mL injection, auto-injector 0.3 mg IM PRN PRN Allergy Symptoms 02/10/22 [History Last Taken Unknown] levothyroxine 75 mcg tablet 75 mcg PO DAILY 02/10/22 [History Last Taken Unknown] lidocaine-prilocaine 2.5 %-2.5 % topical cream See Rx Instructions .Route .COMPLEX 02/10/22 [History Last Taken Unknown] loratadine 10 mg tablet 10 mg PO DAILY 02/10/22 [History Last Taken Unknown] lorazepam 0.5 mg tablet 0.5 mg PO DAILY 02/10/22 [History Last Taken Unknown] olanzapine 10 mg tablet 10 mg PO QHS 02/10/22 [History Last Taken Unknown] promethazine 25 mg tablet 25 mg PO Q6H PRN Nausea 02/10/22 [History Last Taken Unknown] triamcinolone acetonide 0.1 % lotion See Rx Instructions .Route .COMPLEX 02/10/22 [History Last Taken Unknown] Allergy/AdvReac Type Severity Reaction Status Date / Time bee venom protein (honey bee) Allergy Anaphylaxis Verified 02/10/22 16:18 Surgical History H/O: hysterectomy History of appendectomy Hx of right mastectomy Social History Smoking Status: Never smoker Vital Signs Vital Signs Vital Signs: 02/10/22 16:07 02/10/22 16:14 02/10/22 16:16 Temperature 98.1 F Temperature Source Temporal Pulse Rate 100 103 H Respiratory Rate 16 21 H Respiratory Effort Normal Non-Labored Respiratory Depth Normal Respiratory Pattern Normal Blood Pressure 125/84 H 140/99 H Blood Pressure Mean 97 112 Pulse Ox 99 95 Oxygen Delivery Method Room Air Room Air Room Air 02/10/22 16:22 02/10/22 17:26 02/10/22 17:32 Temperature Temperature Source Pulse Rate 87 101 H Respiratory Rate 14 11 L Respiratory Effort Respiratory Depth Respiratory Pattern Normal Blood Pressure 124/94 H Blood Pressure Mean 104 Pulse Ox 98 98 Oxygen Delivery Method Room Air Room Air Weight Weight: 180 lb Body Mass Index (BMI) 29.0 Results Lab / Micro Data Result Diagrams: 02/10/22 16:37 02/10/22 16:37 Labs: Laboratory Results - last 24 hr 02/10/22 16:37: WBC 6.6, RBC 3.36 L, Hgb 12.4, Hct 37.6, MCV 111.9 H, MCH 36.9 H , MCHC 33.0, RDW Std Deviation 54.4 H, RDW Coeff of Radha 13.2, Plt Count 228, MPV 10.2, Immature Gran % (Auto) 0.500, Neut % (Auto) 61.4, Lymph % (Auto) 18.3 L, [place] % (Auto) 11.9 H, Eos % (Auto) 7.4 H, Baso % (Auto) 0.5, Absolute Neuts (auto) 4.1, Absolute Lymphs (auto) 1.21, Nucleated RBC % 0 02/10/22 16:37: D-Dimer Quant (PE/DVT) 0.51 H* 02/10/22 16:37: Sodium 140, Potassium 3.6, Chloride 106, Carbon Dioxide 26.0, Anion Gap 8, BUN 12, Creatinine 0.72, Estim Creat Clear Calc 78.76, Est GFR (MDRD) Af Amer 106, Est GFR (MDRD) Non-Af 88, BUN/Creatinine Ratio 16.6, Glucose 115 H, Calcium 9.4, Troponin I High Sens 28 Micro: Microbiology 02/10/22 17:34 Nasal Secretion SARS-CoV-2 Antigen (Rapid) - Final Radiology Impression Chest X-Ray 02/10/22 17:10 IMPRESSION: No acute cardiopulmonary pathology. Electronically Signed: Michael Montalvo MD at 17:28 EDT ,
[2022-02-10] MEDS: MethylPREDNISolone 125 MG/2 ML Vial IV (19:17)
[2022-02-10 19:36] LABS: Troponin-I HS 25 pg/mL (3.0-54.0)
== END 2022-02-10 20:11 | disposition home or self-care (01) ==
PROVIDERS: Emergency Provider Student in an Organized Health Care Education/Training Program; PCP Preventive Medicine Occupational Medicine; Visit Provider Student in an Organized Health Care Education/Training Program
DX: J40 Bronchitis, not specified as acute or chronic (principal); C50.911 Malignant neoplasm of unspecified site of right female breast; R07.9 Chest pain, unspecified; I10 Essential (primary) hypertension; R06.02 Shortness of breath; R05.9 Cough, unspecified; Z92.3 Personal history of irradiation; Z79.01 Long term (current) use of anticoagulants; Z86.718 Personal history of other venous thrombosis and embolism; Z79.52 Long term (current) use of systemic steroids; Z79.899 Other long term (current) drug therapy
CPT/HCPCS: 36591; 71045; 80048; 84484; 85025; 85379; 87811; 93005; 94640; 96374; 96375; 99285; A4216

== ENCOUNTER → 2022-10-04 | Outpatient (CLI) | payer OTHER, SELFPAY ==
[2022-10-04 18:52] LABS: AST(SGOT) 48 U/L (15-37); Alanine Aminotransfer ALT/SGPT 100 U/L (13-56); Alkaline Phosphatase 61 U/L (45-117); GGTP 144 U/L (5-55); Globulin 3.2 g/dL (2.2-4.2); Protein, Total 7.2 g/dL (6.4-8.2)
== END | disposition home or self-care (01) ==
LOC: MTLAB 16:23
PROVIDERS: PCP Preventive Medicine Occupational Medicine; Referring Provider Internal Medicine Gastroenterology; Visit Provider Internal Medicine Gastroenterology
DX: K76.0 Fatty (change of) liver, not elsewhere classified (principal)
CPT/HCPCS: 36415; 80076; 82977